=== PATIENT | male | born 1960 | race Caucasian/White ===

== ENCOUNTER 2022-09-06 18:20 | Emergency (ER) | payer BC ==
[2022-09-06 18:43] VITALS: BP 118/68; PULSE 89; RESP 18; TEMP 97.8; BMI 32.6
[2022-09-06 19:15] LABS: HEMATOCRIT 48.4 % (35.4-49); HEMOGLOBIN 16.6 G/dL (11.7-16.9); MCH 32.1 pg (25.7-33.7); MCHC 34.3 g/dl (32.0-35.9); MEAN CELL VOLUME 93.6 fl (80-96); PLATELET COUNT 210.8 10^3/uL (134-434); RBC 5.17 10^6/uL (4.00-5.60); RDW 13.5 % (11.9-15.9); WHITE BLOOD COUNT 10.6 10^3/uL (4.0-10.8)
[2022-09-06 19:18] LABS: URIC ACID CRYSTALS FEW /hpf (NONE SEEN)
[2022-09-06 19:29] LABS: BILIRUBIN,TOTAL 1.4 mg/dl (0.2-1); CALCIUM 9.4 mg/dl (8.5-10); CREATININE 1.1 mg/dl (0.55-1.3); TOT PROT 7.2 g/dl (6.4-8.2)
[2022-09-06] MEDS ORDERED: CYCLOBENZAPRINE HCL 10 MG TABLET (FP) PO ONE (21:08)
[2022-09-06] MEDS ORDERED: CYCLOBENZAPRINE HCL 5 MG TABLET ONE (21:13)
== END 2022-09-06 21:20 | disposition home or self-care (01) ==
LOC: FER 18:20
DX: M54.50 Low back pain, unspecified (principal); R10.9 Unspecified abdominal pain; Z20.822 Contact with and (suspected) exposure to COVID-19
CPT/HCPCS: 36415; 71045-TC-FY; 74176-TC; 80053; 81003; 81015; 85027; 87086; 99285-25; C9803-CS; U0003; U0005